=== PATIENT | male | born 1985 | race Caucasian/White ===

== ENCOUNTER → 2023-09-03 10:41 | Outpatient (REF) | payer OTHER, SELFPAY | LOC: HWRAD 10:41 | PROVIDERS: ATTENDING PHYSICIAN Internal Medicine | DX: R22.1 Localized swelling, mass and lump, neck (principal) | CPT/HCPCS: 76536 ==

== ENCOUNTER → 2024-10-31 11:09 | Outpatient (REF) | payer OTHER, SELFPAY | LOC: HWRAD 11:09 | DX: R10.9 Unspecified abdominal pain (principal); M54.9 Dorsalgia, unspecified | CPT/HCPCS: 76770 ==

== ENCOUNTER → 2024-11-21 13:49 | Outpatient (REF) | payer OTHER, SELFPAY | LOC: HWRAD 13:49 | PROVIDERS: ATTENDING PHYSICIAN Internal Medicine | DX: G89.29 Other chronic pain (principal); M54.6 Pain in thoracic spine | CPT/HCPCS: 72072 ==

== ENCOUNTER → 2025-01-20 14:12 | Outpatient (REF) | payer OTHER, SELFPAY | LOC: RAD 14:12 | PROVIDERS: ATTENDING PHYSICIAN Internal Medicine | DX: R10.9 Unspecified abdominal pain (principal); G89.29 Other chronic pain; M54.6 Pain in thoracic spine | CPT/HCPCS: 74177; Q9967 ==